=== PATIENT | male | born 1945 ===

== ENCOUNTER 2018-11-29 11:11 | Outpatient (CLI) | payer OTHER ==
[~2018-11-29 11:11] MED LIST: ADALAT CC30 MG; ANTIVERT25 M1 PO; FLONASE16 G1 NS; GLUCOTEN CAPLET1 TAB; METFORMIN HCL1000 MG
== END 2018-11-29 17:00 | disposition home or self-care (01) ==
LOC: SONOGRAMA 11:11
DX: M75.101 Unspecified rotator cuff tear or rupture of right shoulder, not specified as traumatic (principal)

== ENCOUNTER 2019-01-29 18:02 | Emergency (ER) | payer OTHER ==
[~2019-01-29] VITALS: Ht 170.2 cm; Wt 77.1 kg
[2019-01-29] MEDS ORDERED: MATULANE50 MG (18:49)
[2019-01-29] MEDS ORDERED: GLIPIZIDE ER2.5 MG (18:49)
[2019-01-29] MEDS ORDERED: HYZAAR 100-12.1 EACH (18:49)
[2019-01-29] MEDS ORDERED: ZYLOPRIM100 M1 (18:50)
[2019-01-29] MEDS ORDERED: ASPIR 8181 MG (18:50)
== END 2019-01-29 22:23 | disposition home or self-care (01) ==
LOC: ER 18:02
DX: S80.02XA Contusion of left knee, initial encounter (principal); M12.562 Traumatic arthropathy, left knee; W18.09XA Striking against other object with subsequent fall, initial encounter; Y93.89 Activity, other specified; Y92.018 Other place in single-family (private) house as the place of occurrence of the external cause; Y99.8 Other external cause status

== ENCOUNTER 2019-02-08 08:43 | Outpatient (CLI) | payer OTHER ==
[~2019-02-08 08:43] MED LIST changes: +ASPIR 8181 MG; +GLIPIZIDE ER2.5 MG; +HYZAAR 100-12.1 EACH; +MATULANE50 MG; +ZYLOPRIM100 M1
== END 2019-02-08 09:00 | disposition home or self-care (01) ==
LOC: NUCLEAR 08:43
DX: M25.462 Effusion, left knee (principal); M79.662 Pain in left lower leg

== ENCOUNTER 2023-04-21 09:59 | Outpatient (CLI) | payer OTHER | END 2023-04-21 10:05 | disposition home or self-care (01) | LOC: SONOGRAMA 09:59 | PROVIDERS: ATTEND Internal Medicine | DX: S49.92XA Unspecified injury of left shoulder and upper arm, initial encounter (principal) ==

== ENCOUNTER → 2023-11-30 12:53 | Outpatient (CLI) | payer OTHER | END | disposition home or self-care (01) | LOC: EKG 11-29 15:46 | PROVIDERS: ATTEND Internal Medicine Cardiovascular Disease | DX: Z01.810 Encounter for preprocedural cardiovascular examination (principal) ==